=== PATIENT | female | born 1990 ===

== ENCOUNTER 2020-03-03 07:08 | Inpatient (IN) | payer OTHER ==
[2020-03-03] VITALS (45 sets, daily range): BP systolic 110–154; BP diastolic 54–88; PULSE 62–117; TEMP 97.2–98.4
[~2020-03-03] VITALS: Ht 149.9 cm; Wt 97.7 kg
--- NOTE | 2020-03-03 05:30 | NUR ---
Pt arrived on unit ambulatory for scheduled induction of labor for adoption . Pt escorted by mother, brother (adoptive father) and [id number] (adoptive mother). Pt reports occasional contractions, denies any leaking of fluid or vaginal bleeding and reports normal movement. EFM and toco monitors started. Vital signs WNL. IV started, labs obtained and LR infusing per order. See EMAR for details. Plan of care for induction reviewed. Pt oriented to room, bed and call light within reach.
--- NOTE | 2020-03-03 06:58 | NUR ---
This RN at bedside. Discussed cytotec placement. Reactive FHR strip obtained. Pt agrees to POC. SVE per this RN . Cytotec placed to the posterior fornix of the cervix. Pt tolerated well.
--- NOTE | 2020-03-03 07:04 | NUR ---
0704, 0713: Late decelerations noted. Pt repositioned LL. 0718: Late decelerations noted. Pt repostioned RL. LR bolus infusing. [id number]: Cat 1 FHR strip obtained.
[~2020-03-03 07:08] MED LIST: PRENATAL
[2020-03-03 08:37] LABS: BASO % 0.2 % (0.0-2.0); EOS # 0.1 (0.0-0.7); EOS % 0.7 % (0-4.0); GRAN # 6.7 (1.4-6.5); GRAN % 65.2 % (42.2-75.2); HEMOGLOBIN 11.6 g/dl (12.5-16.0); LYMPH # 2.4 (1.2-3.4); LYMPH % 23.4 % (20.0-51.0); MEAN CELL VOLUME 89 fl (80.0-100.0); MEAN CORPUSCULAR HEMOGLOBIN 29 pg (27.0-31.0); MEAN CORPUSCULAR HGB CONC 32 g/dl (33.0-37.0); MONO % 9.7 % (1.7-9.3); PLATELET COUNT 172 K/mm3 (130-400); RED BLOOD COUNT 4.04 M/mm3 (4.10-5.30); REDCELL DISTRIBUTION WIDTH-CV 14.1 % (11.5-14.5)
--- NOTE | 2020-03-03 11:58 | NUR ---
Difficulty tracing FHR due to maternal position for epidural placement. RN at bedside adjusting monitors. FHR audible.
--- NOTE | 2020-03-03 12:30 | NUR ---
Pt sitting upright with eating. RN at bedside adjusting monitors. FHR reactive. Pitocin increased to 4mU.
--- NOTE | 2020-03-03 18:30 | NUR ---
Pt reports feeling more pressure with contractions. Variable decelerations down to 70 bpm with spontaneous return to baseline of 145 bpm noted with contractions. SVE 8/-2
--- NOTE | 2020-03-03 18:50 | NUR ---
Recurrent variable decelerations down to 70 - 110 bpm with spontaneous return to baseline noted with contractions. Pt very uncomfortable with pressure and would like to be dosed by ARPAN Torres. [id number] Brian at bedside. Pt sitting up and leaning forward in bed while retaping epidural on back. Difficulty tracing FHR and contractions due to maternal positioning.
--- NOTE | 2020-03-03 19:02 | NUR ---
Pt reports feeling constant pressure. SVE /0. Dr. Alvarado and nursery nurse notified. Pt educated on pushing techniques, verbalized understanding.
--- NOTE | 2020-03-03 19:33 | NUR ---
1909 - Pt positioned into footplates. Aguirre catheter removed at this time, 200 mL clear, yellow urine out. Initial push at this time. 1916 - Pt pushing well with contractions. Encouraged to stop pushing at this time until is at bedside. Pt may do small pushes during contractions if too uncomfortable breathing through them. 1924 - Dr. Alvarado gowned and gloved at perineum. Pt pushing with contractions. Nursery RN Deann Hanley at bedside. 1932 - Spontaneous vaginal delivery of viable infant boy. Infant placed on mother's abdomen. Care of infant assumed to ANAI Isabel. Cord clamped x [address] Alvarado and cut by adoptive father. Pitocin off. Cord blood obtained. 1935 - Spontaneous delivery of intact placenta. Fundus firm and down 1 from umbilicus. Pitocin restarted at 333 mL/hr. Second degree perineal laceration repaired by Dr. Alvarado. Epidural off. 1944 - Pericare provided. New chux beneath patient. Ice pack to perineum. Pt repositioned in bed for comfort. Safety precautions reviewed. Call light within reach. recovery started. See physician delivery note.
--- NOTE | 2020-03-03 21:50 | NUR ---
Pt able to lift and hold each leg off of bed for 5 seconds. Pt repositioned to sitting on edge of bed. Epidural catheter removed. Tip smooth, blue, and intact. Pt able to ambulate to bathroom with stand by assistance. Pt encouraged to void. Unable to void after sitting for about 5 minutes. Pericare explained and provided. New gown on. Mesh panties and peripad applied. Pt ambulated to room 213 with belongings. Educated on need for 3 measured voids.
[2020-03-04 04:00] VITALS: BP 138/86; PULSE 65; TEMP 97.7
[2020-03-04 07:30] VITALS: BP 126/72; PULSE 84; TEMP 98.2
[2020-03-04 09:09] LABS: HEMOGLOBIN 11.3 g/dl (12.5-16.0)
[2020-03-04 09:16] LABS: HEMATOCRIT 33.8 % (37.0-47.0)
--- NOTE | 2020-03-04 11:52 | NUR ---
AB obtained information from SW team in regards to special power of contract attorney forms needed placed in patient's chart. AB informed that patient is adopting out new born child to her brother and his . AB met with charge nurse to discuss plan. SW met with patient to inquire of decision she has made in regards to baby going to her brother and his . Patient confirmed that that is still the assured plan that will take place. SW met with brother and to discuss plan as well. Brother provided that when discharged the plan is to stay at sisters home for a few days before going back to [place]. AB informed both parties if they had any questions please feel free to reach out to the SW team. SW placed documentation in chart.
[2020-03-04 14:00] VITALS: BP 112/56; PULSE 86; TEMP 97.8
[2020-03-04 17:30] VITALS: BP 142/77; PULSE 68; TEMP 98
[2020-03-04 20:20] VITALS: BP 133/67; PULSE 86; TEMP 98.3
== END 2020-03-04 22:25 | disposition home or self-care (01) | DRG 807 ==
LOC: LDR 07:08 → OB 11:16
PROVIDERS: Obstetrics & Gynecology; ADMIT Obstetrics & Gynecology
PROC: 10E0XZZ Delivery of Products of Conception, External Approach (ICD-10-PCS; principal; 2020-03-03)
PROC: 0KQM0ZZ Repair Perineum Muscle, Open Approach (ICD-10-PCS; 2020-03-03)
DX: O99.344 Other mental disorders complicating childbirth (principal); Z37.0 Single live birth; F41.9 Anxiety disorder, unspecified; O99.62 Diseases of the digestive system complicating childbirth; K21.9 Gastro-esophageal reflux disease without esophagitis; O99.02 Anemia complicating childbirth; D64.9 Anemia, unspecified; O70.1 Second degree perineal laceration during delivery; Z3A.39 39 weeks gestation of pregnancy
CPT/HCPCS: J2590; J2795; J7120